=== PATIENT | male | born 1990 | race Caucasian/White ===

== ENCOUNTER 2017-08-11 15:32 | Inpatient (IN) | payer OTHER, BC ==
[~2017-08-11] VITALS: Ht 170.2 cm; Wt 68.0 kg
[2017-08-11 20:59] LABS: *AMPHETAMINE, URINE NEGATIVE (NEGATIVE); *BARBITURATE, URINE NEGATIVE (NEGATIVE); *CANNABINOID, URINE POSITIVE (NEGATIVE); *COCCAINE, URINE NEGATIVE (NEGATIVE); *OPIATE, URINE POSITIVE (NEGATIVE); *PHENCYCLIDINE SCREEN,URINE NEGATIVE (NEGATIVE)
[2017-08-11 21:23] VITALS: BP 138/76
[2017-08-11] MEDS ORDERED: IBUPROFEN 400 MG TABLET PO PRN (21:45)
[2017-08-11] MEDS ORDERED: BUPRENORPHINE HCL 2 MG TAB.SUBL SL PRN (21:45)
[2017-08-11] MEDS ORDERED: MAGNESIUM HYDROXIDE 30 ML LIQUID UDC PO PRN (21:45)
[2017-08-11] MEDS ORDERED: ONDANSETRON 4 MG/2 ML VIAL IM PRN (21:45)
[2017-08-11] MEDS ORDERED: MAG HYDROX/AL HYDROX/SIMETH 30 ML LIQUID UDC PO PRN (21:45)
[2017-08-11] MEDS ORDERED: ACETAMINOPHEN 325 MG TABLET PO PRN (21:45)
[2017-08-11] MEDS ORDERED: METHOCARBAMOL 750 MG TABLET PO PRN (21:45)
[2017-08-11] MEDS ORDERED: ONDANSETRON ODT 4 MG TAB.RAPDIS SL PRN (21:45)
[2017-08-11] MEDS ORDERED: DIAZEPAM 10 MG TABLET PO PRN ×2 (21:45)
[2017-08-11] MEDS ORDERED: LORAZEPAM 2 MG/1 ML VIAL IM PRN (21:45)
[2017-08-11] MEDS ORDERED: DIAZEPAM 5 MG TABLET PO PRN (21:45)
[2017-08-11] MEDS ORDERED: LOPERAMIDE HCL 2 MG CAPSULE PO PRN ×2 (21:45)
[2017-08-11] MEDS ORDERED: CLONIDINE HCL 0.1 MG TABLET PO PRN (21:45)
[2017-08-11] MEDS ORDERED: diphenhydrAMINE 50 MG CAPSULE PO PRN (21:45)
[2017-08-11] MEDS ORDERED: NEOM15OI3 TP (22:28)
[2017-08-11] MEDS ORDERED: OMEP20CA10 PO (22:28)
[2017-08-11] MEDS ORDERED: QUET50TA PO (22:28)
[2017-08-11] MEDS ORDERED: ESCI20TA PO (22:28)
[2017-08-11] MEDS ORDERED: ALBU8.5H8 INH (22:28)
[2017-08-11] MEDS ORDERED: METH500T PO (22:28)
[2017-08-11] MEDS ORDERED: DIAZ5TAB4 PO (22:28)
[2017-08-12] VITALS: BP 128/70
[2017-08-12 00:21] LABS: BASOPHILS # (AUTO) 0.1 K/uL (0.0-8.0); EOSINOPHILS # (AUTO) 0.1 K/uL (0.0-0.7); EOSINOPHILS % (AUTO) 1.3 % (0.0-7.0); HEMATOCRIT 41.1 % (36.7-47.1); HEMOGLOBIN 14.5 g/dL (12.5-16.3); LYMPHOCYTES # (AUTO) 3.7 K/uL (20.0-40.0); LYMPHOCYTES % (AUTO) 44.5 % (20.5-51.5); MEAN CORPUSCULAR HGB CONC 35 g/dL (32.5-36.3); MEAN CORPUSCULAR VOLUME 90.4 fL (73.0-96.2); MONOCYTES # (AUTO) 0.6 K/uL (2.0-10.0); MONOCYTES % (AUTO) 7.3 % (0.0-11.0); NEUTROPHILS # (AUTO) 3.8 K/uL (1.8-8.9); NEUTROPHILS % (AUTO) 45.9 % (38.5-71.5); PLATELET COUNT (AUTO) 238 K/uL (152-348); RED BLOOD CELL COUNT(AUTO) 4.54 MIL/uL (4.06-5.63); WHITE BLOOD COUNT (AUTO) 8.3 K/uL (3.6-10.2)
[2017-08-12 01:13] LABS: ALANINE AMINOTRANSFERASE 14 U/L (16-63); ALKALINE PHOSPHATASE 69 U/L (50-136); AMYLASE 36 U/L (25-115); ASPARTATE AMINOTRANSFERASE 14 U/L (15-37); BILIRUBIN,TOTAL 0.3 mg/dL (0.2-1.0); CARBON DIOXIDE 31 mmol/L (21-32); CHLORIDE 105 mmol/L (98-107); GLUCOSE 103 mg/dL (74-106); LIPASE 124 U/L (73-393); MAGNESIUM 2.1 mg/dL (1.8-2.4); POTASSIUM 3.8 mmol/L (3.5-5.1); UREA NITROGEN, BLOOD 8 mg/dL (7-18)
[2017-08-12 01:21] LABS: ETHANOL < 3 MG/DL (0-0); THYROID STIMULATING HORMONE 1.179 mIU/mL (0.358-3.740)
[2017-08-12 04:00] VITALS: BP 138/72
[2017-08-12 08:00] VITALS: BP 128/66
[2017-08-12] MEDS: MULTIVITAMINS,THERAPEUTIC TABLET PO SCH (08:54)
[2017-08-12] MEDS ORDERED: TUBERCULIN,PURIF.PROT.DERIV. 5 TU/0.1 ML TEST ID ONE (09:00)
[2017-08-12 12:00] VITALS: BP 124/70
[2017-08-12] MEDS: DIAZEPAM 5 MG TABLET PO SCH ×2 (15:36→21:41)
[2017-08-12] MEDS: BUPRENORPHINE HCL 2 MG TAB.SUBL SL SCH ×2 (15:36→21:41)
[2017-08-12] MEDS: GABAPENTIN 300 MG CAPSULE PO SCH (15:37)
[2017-08-12 16:00] VITALS: BP 128/65
[2017-08-12] MEDS ORDERED: INFLUENZA VACCINE 2017-2018 0.5 ML DISP.SYRIN IM ONE (17:00)
[2017-08-12] MEDS ORDERED: PNEUMOCOCCAL 23-VAL P-SAC VAC 0.5 ML VIAL IM ONE (17:00)
[2017-08-12] MEDS ORDERED: GABAPENTIN 300 MG CAPSULE PO SCH (21:00)
[2017-08-12 22:00] VITALS: BP 129/70
[2017-08-13 04:00] VITALS: BP 105/60
[2017-08-13 08:00] VITALS: BP 121/82
[2017-08-13] MEDS: MULTIVITAMINS,THERAPEUTIC TABLET PO SCH (09:00)
[2017-08-13] MEDS: DIAZEPAM 5 MG TABLET PO SCH ×3 (09:00→21:18)
[2017-08-13] MEDS: GABAPENTIN 300 MG CAPSULE PO SCH ×2 (09:00→14:09)
[2017-08-13] MEDS: BUPRENORPHINE HCL 2 MG TAB.SUBL SL SCH ×3 (09:00→21:19)
[2017-08-13 12:00] VITALS: BP 120/70
[2017-08-13 12:07] LABS: HEPATITIS B SURFACE AG Negative (Negative)
[2017-08-13] MEDS ORDERED: IBUPROFEN 600 MG TABLET PO PRN (12:15)
[2017-08-13] MEDS ORDERED: KETOROLAC TROMETHAMINE 30 MG INJ IM PRN (12:15)
[2017-08-13 16:00] VITALS: BP 126/72
[2017-08-13 20:00] VITALS: BP 125/75
[2017-08-13] MEDS ORDERED: GABAPENTIN 300 MG CAPSULE PO SCH (21:00)
[2017-08-13] MEDS: QUETIAPINE FUMARATE 100 MG TABLET PO PRN (23:04)
[2017-08-14 08:00] VITALS: BP 114/56
[2017-08-14] MEDS: GABAPENTIN 300 MG CAPSULE PO SCH ×3 (08:14→21:14)
[2017-08-14] MEDS: DIAZEPAM 5 MG TABLET PO SCH ×3 (08:14→21:14)
[2017-08-14] MEDS ORDERED: DIAZEPAM 5 MG TABLET PO SCH (09:00)
[2017-08-14] MEDS ORDERED: BUPRENORPHINE HCL 2 MG TAB.SUBL SL SCH (09:00)
[2017-08-14 12:00] VITALS: BP 129/84
[2017-08-14] MEDS: DICYCLOMINE HCL 20 MG TABLET PO SCH ×2 (14:18→21:14)
[2017-08-14] MEDS: BUPRENORPHINE HCL 2 MG TAB.SUBL SL SCH ×2 (15:00→21:14)
[2017-08-14 16:00] VITALS: BP 115/67
[2017-08-14 20:00] VITALS: BP 115/73
[2017-08-14] MEDS: CLONIDINE HCL 0.1 MG TABLET PO SCH (21:00)
[2017-08-14] MEDS: QUETIAPINE FUMARATE 100 MG TABLET PO PRN (22:02)
[2017-08-14] MEDS: BENZOCAINE ORAL CARE 12 ML BOTTLE MM PRN (22:03)
[2017-08-15 08:00] VITALS: BP 138/78
[2017-08-15] MEDS: GABAPENTIN 300 MG CAPSULE PO SCH ×3 (08:42→21:00)
[2017-08-15] MEDS: BUPRENORPHINE HCL 2 MG TAB.SUBL SL SCH ×2 (08:42→21:01)
[2017-08-15] MEDS: CLONIDINE HCL 0.1 MG TABLET PO SCH ×2 (08:42→21:00)
[2017-08-15] MEDS: DICYCLOMINE HCL 20 MG TABLET PO SCH ×3 (08:42→21:00)
[2017-08-15] MEDS: DIAZEPAM 5 MG TABLET PO SCH ×2 (08:42→20:59)
[2017-08-15] MEDS ORDERED: DIAZEPAM 5 MG TABLET PO SCH (09:00)
[2017-08-15] MEDS ORDERED: BUPRENORPHINE HCL 2 MG TAB.SUBL SL SCH (09:00)
[2017-08-15] MEDS ORDERED: MIRALAX 17 GM POWD.PACK PO PRN (11:15)
[2017-08-15] MEDS ORDERED: MAGNESIUM CITRATE 296 ML BOTTLE PO PRN (11:15)
[2017-08-15 12:00] VITALS: BP 115/68
[2017-08-15 16:00] VITALS: BP 127/81
[2017-08-15 20:00] VITALS: BP 136/88
[2017-08-15] MEDS: DOCUSATE SODIUM 100 MG CAPSULE PO SCH (21:00)
[2017-08-15] MEDS: HYDROXYZINE PAMOATE 25 MG CAPSULE PO PRN (21:39)
[2017-08-15] MEDS: QUETIAPINE FUMARATE 100 MG TABLET PO PRN (21:40)
[2017-08-16 08:00] VITALS: BP 110/78
[2017-08-16] MEDS ORDERED: BUPRENORPHINE HCL 2 MG TAB.SUBL SL SCH (09:00)
[2017-08-16] MEDS ORDERED: DIAZEPAM 5 MG TABLET PO SCH (09:00)
[2017-08-16] MEDS: DICYCLOMINE HCL 20 MG TABLET PO SCH ×3 (09:13→21:45)
[2017-08-16] MEDS: GABAPENTIN 300 MG CAPSULE PO SCH ×3 (09:13→21:45)
[2017-08-16] MEDS: CLONIDINE HCL 0.1 MG TABLET PO SCH ×3 (09:14→21:00)
[2017-08-16 12:00] VITALS: BP 131/88
[2017-08-16] MEDS: HYDROXYZINE PAMOATE 25 MG CAPSULE PO PRN ×2 (14:10→21:51)
[2017-08-16] MEDS: BACLOFEN 20 MG TABLET PO SCH ×2 (14:11→21:45)
[2017-08-16 17:53] VITALS: BP 138/85
[2017-08-16 20:00] VITALS: BP 120/74
[2017-08-16] MEDS: DOCUSATE SODIUM 100 MG CAPSULE PO SCH (21:00)
[2017-08-16] MEDS: QUETIAPINE FUMARATE 100 MG TABLET PO PRN (21:48)
[2017-08-16] MEDS ORDERED: HYDR-3895 PO (22:01)
[2017-08-16] MEDS ORDERED: BACL20TA PO (22:01)
[2017-08-16] MEDS ORDERED: GABA-534 PO (22:01)
[2017-08-16] MEDS ORDERED: IBUP-1955 PO (22:01)
[2017-08-16] MEDS ORDERED: QUET100T PO (22:01)
[2017-08-16] MEDS ORDERED: DICY20TA28 PO (22:01)
[2017-08-16] MEDS ORDERED: CLON0.1T14 PO (22:01)
[2017-08-17 08:26] VITALS: BP 109/65
[2017-08-17 08:40] VITALS: BP 109/65
[2017-08-17] MEDS: CLONIDINE HCL 0.1 MG TABLET PO SCH (08:40)
[2017-08-17] MEDS: BACLOFEN 20 MG TABLET PO SCH (08:40)
[2017-08-17] MEDS: BENZOCAINE ORAL CARE 12 ML BOTTLE MM PRN (08:40)
[2017-08-17] MEDS: DICYCLOMINE HCL 20 MG TABLET PO SCH (08:40)
[2017-08-17] MEDS: GABAPENTIN 300 MG CAPSULE PO SCH (08:40)
== END 2017-08-17 09:50 | disposition home or self-care (01) | DRG 895 ==
LOC: SRC 20:30
PROVIDERS: ADMIT Internal Medicine; ATTEND Internal Medicine
PROC: HZ2ZZZZ Detoxification Services for Substance Abuse Treatment (ICD-10-PCS; principal; 2017-08-11)
PROC: HZ31ZZZ Individual Counseling for Substance Abuse Treatment, Behavioral (ICD-10-PCS; 2017-08-13)
PROC: HZ41ZZZ Group Counseling for Substance Abuse Treatment, Behavioral (ICD-10-PCS; 2017-08-14)
DX: F11.23 Opioid dependence with withdrawal (principal); F12.10 Cannabis abuse, uncomplicated; F17.210 Nicotine dependence, cigarettes, uncomplicated; F43.10 Post-traumatic stress disorder, unspecified; Z81.1 Family history of alcohol abuse and dependence; G47.00 Insomnia, unspecified; J45.20 Mild intermittent asthma, uncomplicated; K21.9 Gastro-esophageal reflux disease without esophagitis; K08.89 Other specified disorders of teeth and supporting structures; F32.9 Major depressive disorder, single episode, unspecified
CPT/HCPCS: 36415; 70030-TC; 80307; 80346; 80349; 80361; 83690; 83735; 84443; 85025; 86592; 86705; 86803; 87340; 87806; A4663; A9150; G0480; J3535; Q0163